=== PATIENT | female | born 1945 | race Caucasian/White ===

== ENCOUNTER → 2019-01-16 | Outpatient (CLI) | payer MEDICARE ==
[~2019-01-16] MED LIST: ATOR10TA60 PO; METF500T16 PO
--- NOTE | 2019-01-16 13:35 | KCIC ---
RENAL COMPLETE BILATERAL History: Hematuria Comparison: None. Findings: Multiple sonographic images of the kidneys and retroperitoneal structures are submitted. Right kidney measured 11.3 x 5.1 x 4.5 cm. Left kidney measured 11.5 x 4.5 x 5.2 cm. There is no hydronephrosis of either kidney. There is small echogenic focus of the mid right kidney about 0.3 cm, likely calculus. There is limited segmental visualization of the inferior vena cava, majority obscured by bowel gas. Caliber of the visualized abdominal aorta is within normal limits up to 2 cm. Urinary bladder morphology is within normal limits, ureteral jets seen bilaterally. Impression: 1. There is a small echogenic focus of the mid right kidney, likely small nonobstructive calculus. There is no hydronephrosis of either kidney. Electronically signed by: Nate Julien MD (01/16/2019 1:32 PM) [id number]
== END | disposition home or self-care (01) ==
LOC: KCIC US 11:12
PROVIDERS: ATTEND Family Medicine
DX: R31.9 Hematuria, unspecified (principal)
CPT/HCPCS: 76770

== ENCOUNTER → 2019-11-16 | Outpatient (CLI) | payer MEDICARE ==
[~2019-11-16] MED LIST changes: +CALC625T20 PO; +CETI10TA24 PO; +DIPH25CA58 PO; +FAMO40TA57 PO; +FERR-36 PO; +IBUP-1007 PO; +PANT40TA77 PO; +SUCR1TAB PO
[2019-11-16 09:36] LABS: BASO % 1 % (0-3); EOS # 0.1 x10^3/uL (0.0-0.7); EOS % 2 % (0-3); HEMATOCRIT 38.6 % (36.0-47.0); HEMOGLOBIN 12.7 g/dL (12.0-15.5); LYMPH # 1.6 x10^3/uL (1.0-4.8); LYMPH % 29 % (24-48); MEAN CORPUSCULAR HEMOGLOBIN 30 pg (25-35); MEAN CORPUSCULAR HGB CONC 33 g/dL (31-37); MEAN CORPUSCULAR VOLUME 92 fL (79-100); MONO # 0.5 x10^3/uL (0.0-1.1); MONO % 10 % (0-9); NEUT # 3.2 x10^3/uL (1.8-7.7); NEUT % 58 % (31-73); PLATELET COUNT 296 x10^3/uL (140-400); RED CELL DISTRIBUTION WIDTH 15.3 % (11.5-14.5); WHITE BLOOD COUNT 5.5 x10^3/uL (4.0-11.0)
[2019-11-16 09:41] LABS: ALBUMIN 3.7 g/dL (3.4-5.0); CALCIUM 10.6 mg/dL (8.5-10.1); CREATININE 0.9 mg/dL (0.6-1.0); POTASSIUM 4.5 mmol/L (3.5-5.1)
[2019-11-16 09:57] LABS: PROTHROMBIN TIME PATIENT 12.2 SEC (11.7-14.0)
--- NOTE | 2019-11-16 13:31 | EKG ---
[facility] [address] [place] [address] Test Date: 2019-11-16 Test Time: 12:45:23 Pat Name: HOWARD RODRIGUEZ Department: Room: Gender: F Clinical Care Coordinator: : 1945 Requested By: JOHNATHAN KNIGHT Order Number: [id number] Reading MD: William Mills Measurements Intervals [facility] Rate: 81 P: 54 VT: 138 QRS: 18 QRSD: 82 T: 58 QT: 340 QTc: 400 Interpretive Statements SINUS RHYTHM NORMAL ECG RI6.02 No previous ECG available for comparison Electronically Signed On 11-17-2019 13:03:52 FUND CONTROLLER by William Mills
[2019-11-16 23:07] LABS: HEMOGLOBIN A1C 6.1 % (4.8-5.6)
--- NOTE | 2019-11-17 07:53 | RAD ---
CHEST PA LATERAL History: Elevated BMI. Presurgical evaluation of the left knee. Comparison: None. Findings: Frontal and lateral views of the chest were obtained. The cardiomediastinal silhouette is normal. Pulmonary vasculature is normal. The lungs are clear. No pleural effusion or pneumothorax is seen. There is no acute bone abnormality. Upper abdominal surgical clips are present. IMPRESSION: No acute cardiopulmonary process. Electronically signed by: Ridge Lubin MD (11/17/2019 7:50 AM) [facility]
== END | disposition home or self-care (01) ==
LOC: SURGPAT 13:11
PROVIDERS: ATTEND Orthopaedic Surgery
DX: Z01.818 Encounter for other preprocedural examination (principal); M17.12 Unilateral primary osteoarthritis, left knee; E78.00 Pure hypercholesterolemia, unspecified; Z88.5 Allergy status to narcotic agent; Z88.8 Allergy status to other drugs, medicaments and biological substances
CPT/HCPCS: 36415; 71046; 80048; 82040; 82306; 83036; 85025; 85610; 85651; 85730; 87641; 93005

== ENCOUNTER 2019-12-08 08:55 | Inpatient (IN) | payer MEDICARE ==
[~2019-12-08] VITALS: Ht 162.6 cm; Wt 92.5 kg
[2019-12-08] VITALS (7 sets, daily range): BP systolic 96–122; BP diastolic 50–60
[~2019-12-08 08:55] MED LIST changes: +ACETAMINOPHEN 500 MG TABLET PO PRN; +CELECOXIB 100 MG CAPSULE. PO ONE; +DEXAMETHASONE SOD PHOS 4 MG/ML VIAL ONE; +IV RINGERS,LACTATED 1000ML 1,000 ML IV SCH; +LIDOCAINE 1% PF 2 ML VIAL. ID PRN; +LIDOCAINE 2% PF 5 ML VIAL. ONE; +MORPHINE SULFATE 5 MG, KETOROLAC 30MG VIAL 30 MG, ROPIVacaine 0.5% PF 60 ML, EPINEPHrin... INT ART ONE; +ONDANSETRON PF 4 MG/2 ML VIAL. IV PRN; +ONDANSETRON PF 4 MG/2 ML VIAL. ONE; +PHENYLEPHRINE in 0.9% NACL PF 1 MG/10 ML SYRINGE. IV ONE; +PROCHLORPERAZINE 10 MG/2 ML VIAL. IV PRN; +PROPOFOL 20 ML IV ONE; +ROCURONIUM 50 MG/5 ML VIAL. ONE; +SUCCINYLCHOLINE 200 MG/10 ML VIAL. ONE; +TOBRAMYCIN POWDER 1.2 GM VIAL. ONE; +TRANEXAMIC ACID 1,000 MG in IV NS 50ML -- 1ST BAG INJ ONE; +TRANEXAMIC ACID 1,000 MG in IV NS 50ML -- 2ND BAG INJ ONE; +VANCOMYCIN 1 GM VIAL. ONE; +ceFAZolin 2GM PREMIX 2 GM/50 ML BAG IV ONE; +ePHEDrine PF IN SALINE 50 MG/10 ML SYRINGE. IV ONE; +fentaNYL PF VIAL 100 MCG/2 ML VIAL IV PRN; +fentaNYL PF VIAL 100 MCG/2 ML VIAL ONE
[2019-12-08] MEDS ORDERED: CELE200C PO (09:20)
[2019-12-08] MEDS ORDERED: INSULIN LISPRO 100 UNIT/ML 3ML VIAL for OP,RR ONLY. SQ PRN (09:30)
[2019-12-08] MEDS ORDERED: CELECOXIB 100 MG CAPSULE. PO ONE (09:45)
[2019-12-08] MEDS ORDERED: MIDAZOLAM HCL/PF 2 MG/2 ML VIAL. ONE (10:20)
[2019-12-08] MEDS ORDERED: fentaNYL PF VIAL 100 MCG/2 ML VIAL ONE (10:48)
[2019-12-08] MEDS ORDERED: GLYCOPYRROLATE 1 MG/5 ML VIAL. ONE (10:49)
[2019-12-08] MEDS ORDERED: NEOSTIGMINE METHYLSULFATE 5 MG/5 ML SYRINGE. ONE (11:29)
[2019-12-08] MEDS ORDERED: SEVOFLURANE > 120 MINUTES. IH ONE (11:29)
--- NOTE | 2019-12-08 12:45 | PDOC4 ---
Operative Note Operative Note Date of Procedure: December 08, 2019 Pre-Op Diagnosis: Unilateral primary osteoarthritis, left knee. M17.12 Post-Op Diagnosis: same Procedure: left total knee arthroplasty with patella resurfacing, robotic assisted, CPT 62164 Surgeon: Johnathan Wilkins MD Auxiliary Equipment Operator: MOMO Clay Anesthesia: General EBL: 100 mL Specimens Obtained: left knee bone and soft tissue Complications: none Drains: Hemovac plus pain catheter Tourniquet time: 71 Minutes Tourniquet Pressure: 350 mm Hg Indications for Procedure: Knee arthritis pain, affecting quality of life, unrelieved by nonoperative management Findings: Severe osteoarthritis with bone on bone contact in all three compartments Implants: Tony [employer] Nephew Journey II Total Knee System, Size 4 left bicruciate stabilized Journey II BCS cobalt chrome femoral component, size 3 left Journey nonporous tibial baseplate, size 3-4 11 mm left Journey II BCS XLPE articular insert, 32 mm oval Anju II resurfacing patellar component Procedure in Detail: The patient was identified in the preoperative holding area, and the correct left lower extremity was marked by me. The patient was taken to the operating r oom where the patient was anesthetized by the Department of Anesthesia. Preoperative antibiotics were given intravenously. Tranexamic acid 1 g was given intravenously for intraoperative hemostasis. A "time-out" procedure was performed. The patient was positioned supine on the operative table with a tourniquet on the upper left thigh. A left hip bump and heel bump were attached to the operating table for later intraoperative positioning. The left lower limb was thoroughly scrubbed, then sterile Chloraprep solution was applied, and the limb was draped in sterile fashion. The operating team wore exhaust ventilated hoods with [employer] Personal Protection Toga Zippered Peel-Away protection system. An impervious stockinet and an adhesive drape were used such that the skin was entirely covered. The limb was exsanguinated with an Esmarch bandage, and the tourniquet was inflated. A midline skin incision was made with a scalpel using the patella and tibial tubercle as landmarks. Electrocautery was used for hem ostasis. My child care center assistant director used rake retractors and a laparotomy sponge. A medial parapatellar arthrotomy incision was used with extension into the distal quadriceps tendon. The patella was retracted laterally and Hohmann retractors were now used by my child care center assistant director. Excess synovium, the menisci, and the cruciate ligaments were resected sharply. A periarticular multimodal ropivacaine anesthetic injection was used in the suprapatellar pouch and distal quadriceps muscle. The patella was everted and exposed. The patella thickness was measured with a caliper, and then cut freehand with a saw, using caliper measurements to assess the resection. The lateral retinaculum was partially released from the lateral patella using electrocautery. Rongeurs were used to make sure there were no remaining exposed patellar osteophytes medially or laterally. The patella was sized, and then drilled for an oval three-peg patella component. The tibial tracker array for the NAVIO system was applied to the tibial crest four finger breadths below the tibial tubercle, using percutaneous incisions and bicortical pins. The femoral tracker array was applied outside of the original incision using two separate stab incisions using bicortical pins. Checkpoint verification pins were applied to the femur and tibia. Using the point probe, the medial and lateral malleoli were localized and the locations were stored. The center of the tibia was noted at the anterior cruciate ligament insertion and stored. The center of the femur was marked at the intersection of Whitesidess line with the transepicondylar axis. The hip center calculation was performed with range of motion of the hip. The femur neutral position was identified, and simulated weightbearing was performed with axial compression on the foot. Range of motion without stress was performed and the data collected. Range of motion with valgus stress, and range of motion with varus stress data collection was also performed. Rotational references include the Whitesidess line, and the trans-epicondylar axis. The femoral articular surface was now mapped in 3 dimensions using the point probe and digital data collected. The tibial condyle articular surfaces and cortical edges were mapped in 3 dimensions using the point probe including the medial and lateral tibial plateau. Implant planning was now performed on-screen with manipulation of the implant sizes, cut thicknesses and gaps, component rotation, component flexion/extension and component varus/valgus until satisfactory ligament balance, alignment and stability of the knee was expected throughout the range of motion. My child care center assistant director held Hohmann retractors and an [employer] retractor to protect the medial and lateral collateral ligaments, the patellar tendon, the skin and the other soft tissues. The point probe was used to confirm the location of the checkpoint verification pins. The distal femoral surface was now prepared using the Anspach nidia with footpedal, and the NAVIO handpiece for bone removal to the previously planned distal femoral resection. The crosshairs at the pin locations were marked by using a mallet and the point probe for definitive location. A 5-in-1 Journey II cutting guide was then applied and the position was checked with the virtual fritz wing from the NAVIO to ensure proper placement as the pins were applied. The posterior, anterior, and all chamfer cuts were made with the oscillating saw. Excess bone was removed with an osteotome and rongeurs. The tibial cutting guide was applied, positioned using the NAVIO virtual fritz wing, and secured to the upper tibia using three pins at the previously planned location. The virtual fritz wing was used to confirm the resection depth, slope and coronal alignment. The upper tibia was cut made with an oscillating saw. My child care center assistant director held Hohmann retractors and a posterior cruciate ligament retractor to protect the medial and lateral collateral ligaments, the patellar tendon, the skin, the peroneal nerve and the other soft tissues. The upper tibia was sized with a trial baseplate. The posterior compartment was cleared of osteophytes and loose bodies. The periarticular anesthetic injection was used in the posterior compartment. The box cut for a posterior stabilized component was made. A preliminary reduction was performed with a trial femur, trial tibial baseplate and trial polyethylene. The NAVIO system was used to confirm range of motion, and postoperative stressed gap assessment. No additional releases were required. The stability was assessed using different thicknesses of tibial articular surface to find satisfactory stability and good range of motion. The rotation of the tibial component was marked on the upper tibia. Final trial reduction was now performed verifying patella tracking and tibiofemoral stability and alignment. The bone pins and tracker arrays were removed, and the checkpoint verification pins were removed. The tibia preparation was completed with a drill, saw, and fin punch at the previously noted rotation. The final implants were verified and opened. Outer gloves were changed by the operating team. Betadine lavage was used. The bone cuts were irrigated with saline using the [employer] InterPulse device and then dried with suction and laparotomy sponges. Two packages of Tony + Nephew Rally HV bone cement were mixed in powdered form with Vancomycin 1gm and Tobramycin 1.2 gm, and then vacuum-mixed with the monomer, and placed into a cement gun. The cut surfaces of the bone were thoroughly dried with suction and with laparotomy sponges for cement interdigitation. The final components were cemented into place. The knee was kept at full extension while the cement hardened, and excess cement was removed. A Betadine lavage was used throughout the surgical exposure, and allowed to sit in contact with the exposed joint surfaces for three minutes while the cement hardened. Tranexamic acid 1 g was redosed intravenously for additional intraoperative hemostasis. The tourniquet was released, and electrocautery was used for hemostasis. A final periarticular anesthetic injection was used for pain relief. The bone pin sites on the tibial crest were closed with #3-0 Nylon sutures. A final check of [id number] and stability was made, and the polyethylene implant final size was chosen. The polyethylene implant was secured to the tibial baseplate, and the knee was reduced a final time and range of motion and stability was confirmed. Thorough irrigation was used. A pain catheter, and a 15 Fr Hemovac were inserted. Topical Vancomycin 1 gm was used during the closure. The arthrotomy was closed with interrupted [id number] #1 PDS suture. The arthrotomy incision was then run with #1 STRATAFIX Symmetric PDS Plus Knotless suture. The subcutaneous tissues were approximated initially with 2-0 PDS inverted interrupted sutures by my child care center assistant director. Next the subcuticular layer was approximated in a running fashion with #3-0 STRATAFIX suture by my child care center assistant director. The skin incision was then covered and reinforced by my child care center assistant director with Acticoat, followed by a CHASE single use negative pressure wound therapy dressing Soft roll and an Og wrap were applied. Needle and sponge counts were correct. There were no apparent complications. The patient returned to the recovery room in stable condition. JOHNATHAN WILKINS MD Dec 08, 2019 12:45
[2019-12-08] MEDS ORDERED: CALCIUM CARBONATE 500 MG TAB.CHEW PO PRN (13:00)
[2019-12-08] MEDS ORDERED: fentaNYL PF VIAL 100 MCG/2 ML VIAL IVP PRN ×2 (13:00)
[2019-12-08] MEDS ORDERED: MORPHINE SULFATE 2 MG/ML VIAL. IVP PRN (13:00)
[2019-12-08] MEDS ORDERED: diphenhydrAMINE 50 MG/ML VIAL IVP PRN (13:00)
[2019-12-08] MEDS ORDERED: DEXTROSE 50% 25 GM / 50ML DISP.SYRIN. IV PRN (13:00)
[2019-12-08] MEDS ORDERED: MORPHINE SULFATE 4 MG/ML VIAL. IVP PRN (13:00)
[2019-12-08] MEDS ORDERED: PROCHLORPERAZINE 5 MG TABLET. PO PRN (13:00)
[2019-12-08] MEDS ORDERED: METOCLOPRAMIDE HCL 10 MG/2 ML VIAL. IVP PRN (13:00)
[2019-12-08] MEDS ORDERED: 0.9 % SODIUM CHLORIDE 10 ML DISP.SYRIN. IV PRN (13:00)
[2019-12-08] MEDS ORDERED: ZOLPIDEM 5 MG TABLET. PO PRN (13:00)
--- NOTE | 2019-12-08 13:54 | RAD ---
EXAM: Left knee, 2 views. HISTORY: Arthroplasty. COMPARISON: 11/09/2019 FINDINGS: 2 views of the left knee are obtained. There is a left knee arthroplasty in expected position. There is joint fluid, soft tissue gas and a drain due to recent surgery. IMPRESSION: Left knee arthroplasty in expected position. Electronically signed by: Carol Hardy MD (12/08/2019 1:52 PM) [id number]
--- NOTE | 2019-12-08 14:30 | PDOC1 ---
History and Physical Date of Admission Date of Admission DATE: 12/08/19 TIME: 14:21 History of Present Illness History of Present Illness Christa is a 74-year-old woman with left knee osteoarthritis, here for left TKA, and has bilateral knee OA. She is a past [facility] patient of mine with a long history of bilateral knee pain. History of left knee arthroscopy in 2008 and right knee arthroscopy in 2010. History of L4-5 spine fusion. History of DVT with left knee scope and infection in her left big toe with ingrown toenail. Her granddaughter goes to school with my son. Currently, she states that both knees bother her, left worse. She takes ibuprofen and Aleve occasionally. When she moves her left knee the wrong way she reports feeling like a "knife is in my knee". Post thrombosis symptoms in left leg including swelling. She notes being able to walk a mile for exercise although it would be painful afterwards. She went to [place] last year with her daughter but had to use a cane. Reports that her last cortisone injection did not help although she has been compliant with physical therapy. Denies smoking. Denies any known metal allergy. She is here for left total knee arthroplasty electively. Past Medical History Past Medical History Mammogram 10/13, 11/15, 11/16, 11/17, 11/18. EGD June 2013 with chronic gastritis. colonoscopy 2009 Dr Camp: repeat 2014 showed polyps. Repeat again in 2019. echocardiogram April 2012. Normal LV function with ejection fraction of 55-60%. Horne's esophagus, path neg 2013. BMD DEXA 10/05, 11/08, 04/09, 07/15. Pneumovax 03/09 Prevnar 07/14. Past Surgical History Past Surgical History cataract removal LORNA with RSO cholecystectomy tonsillectomy Spinal fusion Family History Family History: No Significant Social History Smoke: No ALCOHOL: none Current Medications Current Medications Current Medications Ondansetron HCl (Zofran) 4 mg PRN Q6HRS PRN IV NAUSEA/VOMITING; Start 12/08/19 at 07:00; Stop 12/09/19 at 06:59 Fentanyl Citrate (Fentanyl 2ml Vial) 25 mcg PRN Q5MIN PRN IV MILD PAIN 1-3 Last administered on 12/08/19at 13:55; Start 12/08/19 at 07:00; Stop 12/09/19 at 06:59 Fentanyl Citrate (Fentanyl 2ml Vial) 50 mcg PRN Q5MIN PRN IV MODERATE TO SEVERE PAIN Last administered on 12/08/19at 13:22; Start 12/08/19 at 07:00; Stop 12/09/19 at 06:59 Ringer's Solution 1,000 ml @ 30 mls/hr Q24H IV Last administered on 12/08/19at 09:36; Start 12/08/19 at 07:00; Stop 12/08/19 at 18:59 Lidocaine HCl (Xylocaine-Mpf 1% 2ml Vial) 2 ml PRN 1X PRN ID PRIOR TO IV START; Start 12/08/19 at 07:00; Stop 12/09/19 at 06:59 Prochlorperazine Edisylate (Compazine) 5 mg PACU PRN PRN IV NAUSEA, MRX1 Last administered on 12/08/19at 13:58; Start 12/08/19 at 07:00; Stop 12/09/19 at 06:59 Morphine Sulfate 5 mg/Ketorolac Tromethamine 30 mg/Ropivacaine 60 ml/Epinephrine HCl 0.5 mg/Sodium Chloride 100 ml @ 100 mls/hr 1X ONCE INT ART Last administered on 12/08/19at 10:57; Start 12/08/19 at 06:00; Stop 12/08/19 at 06:59; Status DC Acetaminophen (Tylenol) 1,000 mg 1X PREOP PRN PO PRIOR TO PROCEDURE Last administered on 12/08/19at 09:39; Start 12/08/19 at 06:00; Stop 12/08/19 at 18:00 Cefazolin Sodium/ Dextrose 50 ml @ 100 mls/hr 1X PREOP PRN IV PRIOR TO PROCEDURE Last administered on 12/08/19at 10:13; Start 12/08/19 at 06:00; Stop 12/08/19 at 18:00 Tranexamic Acid 1000 mg/Sodium Chloride 60 ml @ 60 mls/hr 1X PERIOP ONCE INJ Last administered on 12/08/19at 10:25; Start 12/08/19 at 06:00; Stop 12/08/19 at 06:59; Status DC Tranexamic Acid 1000 mg/Sodium Chloride 60 ml @ 60 mls/hr 1X PERIOP ONCE INJ Last administered on 12/08/19at 12:05; Start 12/08/19 at 08:00; Stop 12/08/19 at 08:59; Status DC Celecoxib (CeleBREX) 400 mg ONCE ONCE PO ; Start 12/08/19 at 06:00; Stop 12/08/19 at 09:45; Status DC Propofol 20 ml @ As Directed STK-MED ONCE IV ; Start 12/08/19 at 08:00; Stop 12/08/19 at 08:01; Status DC Lidocaine HCl (Lidocaine Pf 2% Vial) 5 ml STK-MED ONCE .ROUTE ; Start 12/08/19 at 08:00; Stop 12/08/19 at 08:01; Status DC Dexamethasone Sodium Phosphate (Decadron) 4 mg STK-MED ONCE .ROUTE ; Start 12/08/19 at 08:00; Stop 12/08/19 at 08:01; Status DC Ondansetron HCl (Zofran) 4 mg STK-MED ONCE .ROUTE ; Start 12/08/19 at 08:00; Stop 12/08/19 at 08:01; Status DC Phenylephrine HCl (PHENYLEPHRINE in 0.9% NACL PF) 1 mg STK-MED ONCE IV ; Start 12/08/19 at 08:00; Stop 12/08/19 at 08:01; Status DC Ephedrine Sulfate (ePHEDrine PF IN SALINE SYRINGE) 50 mg STK-MED ONCE IV ; Start 12/08/19 at 08:01; Stop 12/08/19 at 08:01; Status DC Rocuronium [place] (Zemuron) 50 mg STK-MED ONCE .ROUTE ; Start 12/08/19 at 08:01; Stop 12/08/19 at 08:01; Status DC Succinylcholine Chloride (Anectine) 200 mg STK-MED ONCE .ROUTE ; Start 12/08/19 at 08:01; Stop 12/08/19 at 08:02; Status DC Fentanyl Citrate (Fentanyl 2ml Vial) 100 mcg STK-MED ONCE .ROUTE ; Start 12/08/19 at 08:19; Stop 12/08/19 at 08:20; Status DC Vancomycin HCl (Vancomycin) 1 gm STK-MED ONCE .ROUTE Last administered on 12/08/19at 10:57; Start 12/08/19 at 08:29; Stop 3/10/20 at 08:30; Status DC Vancomycin HCl (Vancomycin) 1 gm STK-MED ONCE .ROUTE Last administered on 12/08/19at 10:57; Start 12/08/19 at 08:30; Stop 12/08/19 at 08:30; Status DC Tobramycin Sulfate (Tobramycin Powder) 1.2 gm STK-MED ONCE .ROUTE Last administered on 12/08/19at 10:56; Start 12/08/19 at 08:30; Stop 12/08/19 at 08:30; Status DC Insulin Human Lispro (HumaLOG VIAL for OP,RR ONLY) 0-10 units PRN Q1HR PRN SQ PER PROTOCOL; Start 12/08/19 at 09:30; Stop 12/09/19 at 09:29 Celecoxib (CeleBREX) 200 mg 1X ONCE PO Last administered on 12/08/19at 09:45; Start 12/08/19 at 09:45; Stop 12/08/19 at 09:58; Status DC Midazolam HCl (Versed) 2 mg STK-MED ONCE .ROUTE ; Start 12/08/19 at 10:20; Stop 12/08/19 at 10:21; Status DC Fentanyl Citrate (Fentanyl 2ml Vial) 100 mcg STK-MED ONCE .ROUTE ; Start 11/28 at 10:48; Stop 12/08/19 at 10:49; Status DC Glycopyrrolate (Robinul) 1 mg STK-MED ONCE .ROUTE ; Start 12/08/19 at 10:49; Stop 12/08/19 at 10:49; Status DC Sevoflurane (Ultane) 90 ml STK-MED ONCE IH ; Start 12/08/19 at 11:29; Stop 12/08/19 at 11:29; Status DC Neostigmine [place] (Neostigmine Methylsulfate) 5 mg STK-MED ONCE .ROUTE ; Start 12/08/19 at 11:29; Stop 12/08/19 at 11:29; Status DC Morphine Sulfate (Morphine Sulfate) 2 mg PRN Q1HR PRN IVP PAIN; Start 12/08/19 at 13:00 Fentanyl Citrate (Fentanyl 2ml Vial) 25 mcg PRN Q1HR PRN IVP PAIN, 2nd CHOICE; Start 12/08/19 at 13:00 Diphenhydramine HCl (Benadryl) 25 mg PRN Q6HRS PRN IVP ITCHING; Start 12/08/19 at 13:00 Multivitamins (Thera M Plus) 1 tab DAILY PO ; Start 12/09/19 at 09:00 Senna/Docusate Sodium (Senna Plus) 1 tab DAILY PO ; Start 12/09/19 at 09:00 Sodium Chloride 1,000 ml @ 40 mls/hr Q24H IV ; Start 12/08/19 at 12:48 Prochlorperazine Maleate (Compazine) 10 mg PRN Q4HRS PRN PO Nausea/vomiting, 2nd choice; Start 12/08/19 at 13:00 Metoclopramide HCl (Reglan Vial) 10 mg PRN Q4HRS PRN IVP NAUSEA/VOMITING, 3rd CHOICE; Start 12/08/19 at 13:00 Magnesium Hydroxide (Milk Of Magnesia) 2,400 mg 1X PRN PRN PO CONSTIPATION; Start 12/09/19 at 06:00; Stop 12/10/19 at 05:59 Bisacodyl (Dulcolax Supp) 10 mg 1X PRN PRN [place] CONSTIPATION; Start 12/09/19 at 16:00; Stop 12/10/19 at 15:59 Zolpidem Tartrate (Ambien) 5 mg PRN QHS PRN PO INSOMNIA, MAY REPEAT IN 1HR; Start 12/08/19 at 13:00 Calcium Carbonate/ Glycine (Tums) 500 mg PRN QID PRN PO INDIGESTION; Start 12/08/19 at 13:00 Morphine Sulfate (Morphine Sulfate) 4 mg PRN Q1HR PRN IVP PAIN; Start 12/08/19 at 13:00 Ketorolac Tromethamine 30 mg/Bupivacaine HCl 20 ml/ Epinephrine HCl 0.5 mg/ Miscellaneous 43 ml @ 258 mls/hr Q12H INT ART Last administered on 12/08/19at 12:57; Start 12/08/19 at 18:00; Stop 12/09/19 at 06:09 Sodium Chloride (Normal Saline Flush) 10 ml QSHIFT PRN IV AFTER MEDS AND BLOOD DRAWS; Start 12/08/19 at 13:00 Fentanyl Citrate (Fentanyl 2ml Vial) 50 mcg PRN Q1HR PRN IVP PAIN, 2nd CHOICE; Start 12/08/19 at 13:00 Ondansetron HCl (Zofran) 4 mg Q6HRS IVP ; Start 12/08/19 at 18:00; Stop 12/09/19 at 12:01 Ondansetron HCl (Zofran Odt) 4 mg PRN Q6HRS PRN PO NAUSEA/VOMITING; Start 12/08/19 at 18:00 Ondansetron HCl (Zofran) 4 mg PRN Q6HRS PRN IVP Nausea/vomiting, 1st choice; Start 12/09/19 at 12:00 Ondansetron HCl (Zofran Odt) 4 mg PRN Q6HRS PRN PO Nausea/vomiting, 1st choice; Start 12/09/19 at 12:00 Dextrose (Dextrose 50%-Water Syringe) 12.5 gm PRN Q15MIN PRN IV SEE COMMENTS; Start 12/08/19 at 13:00 Cefazolin Sodium/ Dextrose 50 ml @ 100 mls/hr Q6H IV ; Start 12/08/19 at 14:00; Stop 12/09/19 at 02:29 Celecoxib (CeleBREX) 200 mg DAILY PO ; Start 12/09/19 at 09:00; Stop 01/08/20 at 08:59 Hydromorphone HCl (Dilaudid) 2 mg PRN Q4HRS PRN PO PAIN; Start 12/08/19 at 13:00 Rivaroxaban (Xarelto) 10 mg DAILYWBKFT PO ; Start 12/09/19 at 08:00 Active Scripts Active Reported Celebrex (Celecoxib) 200 Mg Capsule 1 Cap PO ONCE Iron (Ferrous Sulfate) 325 Mg Tablet 325 Mg PO DAILY Fiber Tabs (Calcium Polycarbophil) 625 Mg Tablet 625 Mg PO DAILY Ibuprofen 600 Mg Tablet 600 Mg PO PRN Q6HRS PRN Benadryl (Diphenhydramine Hcl) 25 Mg Capsule 50 Mg PO HS Zyrtec (Cetirizine Hcl) 10 Mg Tablet 10 Mg PO DAILY Sucralfate 1 Gm Tablet 1 Gm PO HS Pantoprazole Sodium (Pantoprazole Sodium) 40 Mg Tablet.dr 40 Mg PO QODAY Pepcid (Famotidine) 40 Mg Tablet 80 Mg PO QODAY Metformin Hcl 500 Mg Tablet 1 Tab PO DAILY07 Atorvastatin Calcium 10 Mg Tablet 1 Tab PO DAILY Allergies Allergies: Coded Allergies: codeine (Verified Allergy, Intermediate, MIGRAINES, VOMITING, 12/08/19) hydrocodone (Verified Allergy, Intermediate, 12/08/19) oxycodone (Verified Allergy, Intermediate, 12/08/19) lansoprazole (Verified Allergy, Mild, MIGRAINES, 12/08/19) ROS Review of System OPHTHALMOLOGY: Blurred vision none. Double vision denies. Change in vision none. ENT: Hearing loss none. Change in voice denies. Rhinorrhea none. CARDIOLOGY: Palpitations none. Shortness of breath denies. Chest pain denies. CONSTITUTIONAL: Fever denies. Chills denies. Weight gain denies. Weakness none. weight loss denies. Fatigue none. GASTROENTEROLOGY: Diarrhea denies. Vomiting none. Dysphagia none. UROLOGY: Voiding normally yes. Hematuria none. MUSCULOSKELETAL: Chronic back or neck pain denies. Swelling of the feet, hands, ankles and /or legs denies. Joint pain reports. Tingling/numbness no. DERMATOLOGY: Rash denies. Lumps none. NEUROLOGY: Dizziness/lightheadedness denies. Double vision, temporary blindness denies. Tingling/numbness none. PSYCHOLOGY: Change in mood or personality denies. Memory loss none. ENDOCRINOLOGY: Obesity denies. Fatigue none. Weight loss none. HEMATOLOGY/LYMPH: Hepatitis denies. Enlarged lymph nodes denies. Physical Exam General: Alert, Cooperative HEENT: Atraumatic Heart: RRR Abdomen: Soft Extremities: Other (The LEFT knee shows a mildly antalgic gait. There is normal alignment. No masses. No detectable effusion. Diffuse tenderness on the joint lines. Range of motion is 5-115 degrees. There is slight crepitus with range of motion, and pain at the extremes of motion. The knee is stable to varus and valgus stress without subluxation or laxity. Muscle strength is slightly weak for the quadriceps 4+/5 which may be due to pain or avoidance, and does not seem neurogenic, and the muscle tone and bulk is slightly decreased. The hamstring strength is 5/5. The skin is normal with no scars, rashes, lesions or ulcers. Light touch sensation is intact. No edema and no varicosities. Dorsalis pedis pulse is intact and capillary refill is normal) Skin: No significant lesion Neuro: Normal speech, Sensation intact Vitals Vitals Vital Signs Date Time Temp Pulse Resp B/P (MAP) Pulse Ox O2 Delivery O2 Flow Rate FiO2 12/08/19 14:15 98.7 84 16 99/47 98 Nasal Cannula 4.0 98.7 Labs Labs Laboratory Tests Test 12/08/19 09:31 Glucose (Fingerstick) 95 mg/dL (70-99) Laboratory Tests Test 12/08/19 09:31 Glucose (Fingerstick) 95 mg/dL (70-99) Images Images Knee x-ray show osteoarthritis VTE Prophylaxis Ordered VTE Prophylaxis Devices: Yes VTE Pharmacological Prophylaxi: Yes Assessment/Plan Assessment/Plan She is here for elective left total knee arthroplasty. JOHNATHAN KNIGHT MD Dec 08, 2019 14:30
--- NOTE | 2019-12-08 14:38 | NUR ---
Arrived on unit by bed from PACU. Drowsy but awakens easily but falls asleep. Right leg up on pillow with ice pack. Right leg dressing is d/i with IAC and Hemovac drain. Able to wiggle toes easily, warm to touch and pedal pulses + bilaterally. IVF's intact and infusing. JESUS and SCD on left and ISABELLE on right foot. O2 at 4l per n/c. Oxygen increase from 2 to 4l. O2 sat 94%. Side rails up x's 2 with call light in reach. Family at bedside. Cont. monitor.
[2019-12-08] MEDS: IV NORMAL SALINE 1000ML BAG 1,000 ML IV SCH (14:47)
--- NOTE | 2019-12-08 15:56 | NUR ---
Santos from PACU charted at 1257 that he gave the Toradol/IAC mixture. This nurse called PACU to verify if it was given or not. Per PACU and pharmacy it was not given as an IV infusion and only given during surgery as the injection so it was miss charted. IV charted as stopped and note to verify it was not given at all.
[2019-12-08] MEDS: KETOROLAC 30MG VIAL 30 MG, BUPIVACAINE MPF 0.25% 20 ML, EPINEPHrine 0.5 MG in TOTAL VOL... INT ART SCH (17:43)
[2019-12-08] MEDS ORDERED: KETOROLAC 30MG VIAL 30 MG, BUPIVACAINE MPF 0.25% 20 ML, EPINEPHrine 0.5 MG in TOTAL VOL... INT ART SCH (18:00)
[2019-12-08] MEDS ORDERED: ONDANSETRON ODT 4 MG TAB.RAPDIS. PO PRN (18:00)
[2019-12-08] MEDS: ONDANSETRON PF 4 MG/2 ML VIAL. IVP SCH (18:00)
[2019-12-08] MEDS: SUCRALFATE 1 GM TABLET. PO SCH (20:45)
[2019-12-08] MEDS: diphenhydrAMINE HCL 25 MG CAPSULE PO SCH (20:56)
[2019-12-09] MEDS: HYDROmorphone 2 MG TABLET PO PRN ×5 (02:21→20:57)
[2019-12-09 03:19] VITALS: BP 105/54
[2019-12-09 05:40] LABS: HEMATOCRIT 29.7 % (36.0-47.0); HEMOGLOBIN 10.2 g/dL (12.0-15.5); RED BLOOD COUNT 3.25 x10^6/uL (3.50-5.40); RED CELL DISTRIBUTION WIDTH 14.8 % (11.5-14.5); WHITE BLOOD COUNT 11.1 x10^3/uL (4.0-11.0)
[2019-12-09] MEDS ORDERED: MAGNESIUM HYDROXIDE 2,400 MG/30 ML ORAL.SUSP. PO PRN (06:00)
[2019-12-09] MEDS: KETOROLAC 30MG VIAL 30 MG, BUPIVACAINE MPF 0.25% 20 ML, EPINEPHrine 0.5 MG in TOTAL VOL... INT ART SCH (06:00)
[2019-12-09] MEDS: ONDANSETRON PF 4 MG/2 ML VIAL. IVP SCH ×3 (06:00→11:47)
[2019-12-09 06:32] VITALS: BP 96/52
[2019-12-09] MEDS: CALCIUM POLYCARBOPHIL 625 MG TABLET PO SCH (07:46)
[2019-12-09] MEDS: RIVAROXABAN 10 MG TABLET. PO SCH (07:46)
[2019-12-09] MEDS: ATORVASTATIN CALCIUM 10 MG TABLET. PO SCH (07:46)
[2019-12-09] MEDS: CETIRIZINE HCL 10 MG TABLET. PO SCH (07:46)
[2019-12-09] MEDS: metFORMIN 500 MG TABLET PO SCH (07:46)
[2019-12-09] MEDS: PANTOPRAZOLE 40 MG TABLET.DR. PO SCH (07:46)
[2019-12-09] MEDS: MULTIVITAMIN with MINERAL TABLET. PO SCH (07:47)
[2019-12-09] MEDS: SENNOSIDES/DOCUSATE 8.6/50MG TABLET. PO SCH (07:47)
[2019-12-09] MEDS: CELECOXIB 100 MG CAPSULE. PO SCH (07:47)
--- NOTE | 2019-12-09 07:47 | PDOC ---
ORTHO PROGRESS NOTES Subjective Patient states pain at 3-4 out of 10 after getting up to restroom. Post-op Day: 1 Procedure L TKA Vitals Vital Signs Date Time Temp Pulse Resp B/P (MAP) Pulse Ox O2 Delivery O2 Flow Rate FiO2 12/09/19 06:32 97.8 95 16 96/52 (67) 94 Room Air 97.8 12/08/19 20:00 4.0 Labs Laboratory Tests Test 12/08/19 09:31 12/08/19 14:30 12/09/19 04:35 12/09/19 06:51 Glucose (Fingerstick) 95 mg/dL (70-99) 155 mg/dL (70-99) 107 mg/dL (70-99) White Blood Count 11.1 x10^3/uL (4.0-11.0) Red Blood Count 3.25 x10^6/uL (3.50-5.40) Hemoglobin 10.2 g/dL (12.0-15.5) Hematocrit 29.7 % (36.0-47.0) Mean Corpuscular Volume 92 fL (79-100) Mean Corpuscular Hemoglobin 31 pg (25-35) Mean Corpuscular Hemoglobin Concent 34 g/dL (31-37) Red Cell Distribution Width 14.8 % (11.5-14.5) Platelet Count 256 x10^3/uL (140-400) Laboratory Tests Test 12/08/19 09:31 12/08/19 14:30 12/09/19 04:35 12/09/19 06:51 Glucose (Fingerstick) 95 mg/dL (70-99) 155 mg/dL (70-99) 107 mg/dL (70-99) White Blood Count 11.1 x10^3/uL (4.0-11.0) Red Blood Count 3.25 x10^6/uL (3.50-5.40) Hemoglobin 10.2 g/dL (12.0-15.5) Hematocrit 29.7 % (36.0-47.0) Mean Corpuscular Volume 92 fL (79-100) Mean Corpuscular Hemoglobin 31 pg (25-35) Mean Corpuscular Hemoglobin Concent 34 g/dL (31-37) Red Cell Distribution Width 14.8 % (11.5-14.5) Platelet Count 256 x10^3/uL (140-400) Notes awake and alert sitting up in chair at bedside eating breakfast Assessment and Plan POD # 1 S/P L TKA with patella resurfacing motor and sensation intact LLE dressing dry and intact continue PT LEX VILLATORO APRN Dec 09, 2019 07:47
[2019-12-09] MEDS: IV NORMAL SALINE 1000ML BAG 1,000 ML IV SCH (11:47)
[2019-12-09] MEDS ORDERED: ONDANSETRON PF 4 MG/2 ML VIAL. IVP PRN (12:00)
[2019-12-09] MEDS ORDERED: ONDANSETRON ODT 4 MG TAB.RAPDIS. PO PRN (12:00)
[2019-12-09] MEDS ORDERED: BISACODYL 10 MG SUPP.RECT. PR PRN (16:00)
--- NOTE | 2019-12-09 16:42 | NUR ---
Patients IAC and hemovac were both discontinued after her last PT today around 1510 today. Foam dressings were applied over both sites and no complications were noted at this time. CHASE dressing intact and working properly with only a small amount of drainage noted. Elvira LEE hose on to help with DVT prevention. Will continue to monitor.
--- NOTE | 2019-12-09 17:21 | PDOC ---
PROGRESS NOTES Subjective Subjective Doing pretty well. Not able to get out of bed without assistance yet. Objective Vital Signs Vital Signs Date Time Temp Pulse Resp B/P (MAP) Pulse Ox O2 Delivery O2 Flow Rate FiO2 12/09/19 16:27 94 Room Air 12/09/19 06:32 97.8 95 16 96/52 (67) 97.8 12/08/19 20:00 4.0 Physical Exam CHASE intact and dry with spotty bloody drainage only. Pain catheter and Hemovac have been removed. Calf soft and NT. Good AROM of foot and toes. Intact sensation distally. No sign of compartment syndrome or DVT. Some ecchymosis, no blisters. Labs Laboratory Tests Test 12/08/19 09:31 12/08/19 14:30 12/09/19 04:35 12/09/19 06:51 Glucose (Fingerstick) 95 mg/dL (70-99) 155 mg/dL (70-99) 107 mg/dL (70-99) White Blood Count 11.1 x10^3/uL (4.0-11.0) Red Blood Count 3.25 x10^6/uL (3.50-5.40) Hemoglobin 10.2 g/dL (12.0-15.5) Hematocrit 29.7 % (36.0-47.0) Mean Corpuscular Volume 92 fL (79-100) Mean Corpuscular Hemoglobin 31 pg (25-35) Mean Corpuscular Hemoglobin Concent 34 g/dL (31-37) Red Cell Distribution Width 14.8 % (11.5-14.5) Platelet Count 256 x10^3/uL (140-400) Test 12/09/19 11:38 Glucose (Fingerstick) 118 mg/dL (70-99) Laboratory Tests Test 12/09/19 04:35 12/09/19 06:51 12/09/19 11:38 White Blood Count 11.1 x10^3/uL (4.0-11.0) Red Blood Count 3.25 x10^6/uL (3.50-5.40) Hemoglobin 10.2 g/dL (12.0-15.5) Hematocrit 29.7 % (36.0-47.0) Mean Corpuscular Volume 92 fL (79-100) Mean Corpuscular Hemoglobin 31 pg (25-35) Mean Corpuscular Hemoglobin Concent 34 g/dL (31-37) Red Cell Distribution Width 14.8 % (11.5-14.5) Platelet Count 256 x10^3/uL (140-400) Glucose (Fingerstick) 107 mg/dL (70-99) 118 mg/dL (70-99) Imaging Report reviewed, images independently reviewed. Satisfactory TKA without apparent complications. PATIENT: HOWARD RODRIGUEZ CACCOUNT: [id number] : 1945 LOCATION: [address] [place] [address] AGE: 74 SEX: F EXAM STATUS: ADM IN ORD. PHYSICIAN: JOHNATHAN KNIGHT MD REASON: POST OP PROCEDURE: KNEE LEFT 2V EXAM: Left knee, 2 views. HISTORY: Arthroplasty. COMPARISON: 11/09/2019 FINDINGS: 2 views of the left knee are obtained. There is a left knee arthroplasty in expected position. There is joint fluid, soft tissue gas and a drain due to recent surgery. IMPRESSION: Left knee arthroplasty in expected position. Electronically signed by: Carol Hardy MD (12/08/2019 1:52 PM) [id number] DICTATED and SIGNED BY: CAROL HARDY MD DATE: 12/08/19 1352 Assessment Assessment POD# 1 after TKA Plan Plan of Care Continue PT. Not yet able to get out of bed without assistance. Need to watch incision for blisters or further ecchymosis. JOHNATHAN KNIGHT MD Dec 09, 2019 17:21
[2019-12-09 17:49] VITALS: BP 110/56
[2019-12-09] MEDS: SUCRALFATE 1 GM TABLET. PO SCH (20:57)
[2019-12-09] MEDS: diphenhydrAMINE HCL 25 MG CAPSULE PO SCH (20:57)
--- NOTE | 2019-12-09 21:00 | NUR ---
Ambulating well w/o difficulty w/ walker and SBA. Dilaudid given po. Dressing D/I. Mid left leg is bruised and mildly swollen.
[2019-12-10 04:28] LABS: HEMATOCRIT 27.3 % (36.0-47.0); HEMOGLOBIN 9.3 g/dL (12.0-15.5)
[2019-12-10 05:42] VITALS: BP 107/62
[2019-12-10] MEDS: HYDROmorphone 2 MG TABLET PO PRN ×4 (06:34→20:46)
[2019-12-10] MEDS: SENNOSIDES/DOCUSATE 8.6/50MG TABLET. PO SCH (08:06)
[2019-12-10] MEDS: CALCIUM POLYCARBOPHIL 625 MG TABLET PO SCH (08:06)
[2019-12-10] MEDS: CELECOXIB 100 MG CAPSULE. PO SCH (08:06)
[2019-12-10] MEDS: ATORVASTATIN CALCIUM 10 MG TABLET. PO SCH (08:06)
[2019-12-10] MEDS: MULTIVITAMIN with MINERAL TABLET. PO SCH (08:06)
[2019-12-10] MEDS: metFORMIN 500 MG TABLET PO SCH (08:06)
[2019-12-10] MEDS: CETIRIZINE HCL 10 MG TABLET. PO SCH (08:06)
[2019-12-10] MEDS: RIVAROXABAN 10 MG TABLET. PO SCH (08:06)
[2019-12-10] MEDS ORDERED: FAMOTIDINE 20 MG TABLET. PO SCH (09:00)
--- NOTE | 2019-12-10 11:34 | PDOC ---
ORTHO PROGRESS NOTES Subjective Patient resting sitting up LEFT knee flexed. Pain controlled. Reports some bruising in distal quad. Post-op Day: 2 Procedure LEFT knee TKA robotic assisted Vitals Vital Signs Date Time Temp Pulse Resp B/P (MAP) Pulse Ox O2 Delivery O2 Flow Rate FiO2 12/10/19 10:02 Room Air 12/10/19 06:34 20 12/10/19 05:42 98.6 92 107/62 (77) 94 98.6 Labs Laboratory Tests Test 12/08/19 14:30 12/09/19 04:35 12/09/19 06:51 12/09/19 11:38 Glucose (Fingerstick) 155 mg/dL (70-99) 107 mg/dL (70-99) 118 mg/dL (70-99) White Blood Count 11.1 x10^3/uL (4.0-11.0) Red Blood Count 3.25 x10^6/uL (3.50-5.40) Hemoglobin 10.2 g/dL (12.0-15.5) Hematocrit 29.7 % (36.0-47.0) Mean Corpuscular Volume 92 fL (79-100) Mean Corpuscular Hemoglobin 31 pg (25-35) Mean Corpuscular Hemoglobin Concent 34 g/dL (31-37) Red Cell Distribution Width 14.8 % (11.5-14.5) Platelet Count 256 x10^3/uL (140-400) Test 12/10/19 04:19 12/10/19 06:32 Hemoglobin 9.3 g/dL (12.0-15.5) Hematocrit 27.3 % (36.0-47.0) Mean Corpuscular Hemoglobin Concent 34 g/dL (31-37) Glucose (Fingerstick) 103 mg/dL (70-99) Laboratory Tests Test 12/09/19 11:38 12/10/19 04:19 12/10/19 06:32 Glucose (Fingerstick) 118 mg/dL (70-99) 103 mg/dL (70-99) Hemoglobin 9.3 g/dL (12.0-15.5) Hematocrit 27.3 % (36.0-47.0) Mean Corpuscular Hemoglobin Concent 34 g/dL (31-37) Notes LEFT knee exam: Knee dressing intact, no excess drainage. Mild tenderness, bruising/erythema peripheral to dressing both medially and laterally. No induration. Hemovac pulled, no active bleeding. CHASE intact. Calf nontender bilaterally, neg fritz's sign bilaterally. Thigh nontender. Breathing easily, normal respirations. DP pulses 2+. Assessment and Plan POD # 2 S/P L TKA with patella resurfacing motor and sensation intact LLE dressing dry and intact continue PT LEX VIRK Jr. PAC Dec 10, 2019 11:34 am
--- NOTE | 2019-12-10 12:32 | NUR ---
Had episode during the end of therapy session where pt felt clammy and lightheadedness. BP checked 90/37 with heart rate 94. Pt returned to room ate 100% of lunch and BP rechecked. BP 106/52 with heart rate 98. Feeling better.
--- NOTE | 2019-12-10 17:06 | PATHOLOGY ---
[facility] Accession Number: [id number] . 01 Material submitted: . knee - LEFT KNEE BONE AND SOFT TISSUE. Modifiers: left . 01 Clinical history: . Osteoarthritis . 02 Diagnosis: Segments of bone and soft tissue, left robotic assisted total knee arthroplasty: - Advanced degenerative arthritis. 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 (JPM/db; 12/10/2019) LBQ 12/10/2019 1511 Local . 02 Electronically signed: . Demar Woods MD, Pathologist NPI- [id number] . 01 Gross description: . The specimen is received in formalin, labeled "Christa Meade, left knee bone and soft tissue" and consists of multiple segments of pink-chadwick bone including the tibial plateau with yellow-chadwick soft tissue measuring 15.9 x 12.7 x 2.5 cm in aggregate. The meniscus is present. Osteophytes are present. The articular surfaces display extensive granularity/roughening with focal eburnation. Territory Supervisor sections are submitted in A1-A2 with A2 following decalcification. (SDY; 12/09/2019) SYU/SYU 12/09/2019 1417 Local . 02 Pathologist provided ICD-10: M17.12, M65.9, E88.2 . 02 CPT . 963579, 246377 Specimen Comment: A courtesy copy of this report has been sent to [phone] Specimen Comment: Report sent to Dr. Vallejo Performed at: 01 [facility] [address], [place], [place] [id number] MD Presley Adam MD Phone: [phone] Performed at: 02 [facility] [address] [place], [place] [id number] MD Demar Woods MD Phone: [phone]
[2019-12-10 18:25] VITALS: BP 122/58
[2019-12-10] MEDS: diphenhydrAMINE HCL 25 MG CAPSULE PO SCH (20:46)
[2019-12-10] MEDS: SUCRALFATE 1 GM TABLET. PO SCH (20:46)
[2019-12-11] MEDS: HYDROmorphone 2 MG TABLET PO PRN ×3 (03:54→13:33)
[2019-12-11 04:15] LABS: HEMATOCRIT 27.2 % (36.0-47.0); HEMOGLOBIN 9.5 g/dL (12.0-15.5)
[2019-12-11 06:00] VITALS: BP 110/61
[2019-12-11] MEDS: CALCIUM POLYCARBOPHIL 625 MG TABLET PO SCH (07:52)
[2019-12-11] MEDS: SENNOSIDES/DOCUSATE 8.6/50MG TABLET. PO SCH (07:52)
[2019-12-11] MEDS: CELECOXIB 100 MG CAPSULE. PO SCH (07:52)
[2019-12-11] MEDS: PANTOPRAZOLE 40 MG TABLET.DR. PO SCH (07:52)
[2019-12-11] MEDS: CETIRIZINE HCL 10 MG TABLET. PO SCH (07:52)
[2019-12-11] MEDS: MULTIVITAMIN with MINERAL TABLET. PO SCH (07:52)
[2019-12-11] MEDS: metFORMIN 500 MG TABLET PO SCH (07:53)
[2019-12-11] MEDS: ATORVASTATIN CALCIUM 10 MG TABLET. PO SCH (07:53)
[2019-12-11] MEDS: RIVAROXABAN 10 MG TABLET. PO SCH (07:53)
--- NOTE | 2019-12-11 09:00 | NUR ---
Doing well this am. No c/o at this time. Up in chair reading a book. Cont. monitor.
--- NOTE | 2019-12-11 12:38 | RAD ---
VENOUS LOWER EXTREMITY LEFT History: History of DVT. Left leg pain. Recent knee surgery. Comparison: None. Discussion: Multiple longitudinal and transverse high resolution real-time images of the venous system of left lower extremity were obtained with color and Doppler sampling. Patent common femoral, superficial femoral, popliteal, posterior tibial and greater saphenous veins with normal augmentation and compression. Left peroneal vein is not well identified due to lower extremity edema. Impression: 1. No evidence of deep vein thrombosis. Electronically signed by: Jakob Rivera DO (12/11/2019 12:35 PM) [id number]
--- NOTE | 2019-12-11 12:49 | PDOC ---
ORTHO PROGRESS NOTES Subjective Patient reports doing well, still has pain but controlled. Swelling in leg, knee has her concerned with history of prior DVT. Post-op Day: 3 Procedure LEFT knee TKA robotic assisted Vitals Vital Signs Date Time Temp Pulse Resp B/P (MAP) Pulse Ox O2 Delivery O2 Flow Rate FiO2 12/11/19 09:43 Room Air 12/11/19 06:00 98.3 97 110/61 (77) 91 98.3 12/11/19 04:57 18 Labs Laboratory Tests Test 12/10/19 04:19 12/10/19 06:32 12/11/19 03:40 12/11/19 06:15 Hemoglobin 9.3 g/dL (12.0-15.5) 9.5 g/dL (12.0-15.5) Hematocrit 27.3 % (36.0-47.0) 27.2 % (36.0-47.0) Mean Corpuscular Hemoglobin Concent 34 g/dL (31-37) 35 g/dL (31-37) Glucose (Fingerstick) 103 mg/dL (70-99) 99 mg/dL (70-99) Laboratory Tests Test 12/11/19 03:40 12/11/19 06:15 Hemoglobin 9.5 g/dL (12.0-15.5) Hematocrit 27.2 % (36.0-47.0) Mean Corpuscular Hemoglobin Concent 35 g/dL (31-37) Glucose (Fingerstick) 99 mg/dL (70-99) X-Rays [facility] [address] [place] [address] IMAGING REPORT Signed PATIENT: HOWARD RODRIGUEZ ACCOUNT: [id number] : 1945 LOCATION: [address] [place] [address] AGE: 74 SEX: F EXAM STATUS: ADM IN ORD. PHYSICIAN: LEX VIRK Jr. PAC REASON: Prior DVT same leg, RECENT KNEE SURGERY, LT LEG PAIN PROCEDURE: VENOUS LOWER EXTREMITY LEFT VENOUS LOWER EXTREMITY LEFT History: History of DVT. Left leg pain. Recent knee surgery. Comparison: None. Discussion: Multiple longitudinal and transverse high resolution real-time images of the venous system of left lower extremity were obtained with color and Doppler sampling. Patent common femoral, superficial femoral, popliteal, posterior tibial and greater saphenous veins with normal augmentation and compression. Left peroneal vein is not well identified due to lower extremity edema. Impression: 1. No evidence of deep vein thrombosis. Electronically signed by: Jakob Rivera DO (12/11/2019 12:35 PM) [id number] DICTATED and SIGNED BY: JAKOB RIVERA DO DATE: 12/11/19 6535 Notes LEFT knee exam: Knee dressing intact, no excess drainage. Mild tenderness, bruising/erythema peripheral to dressing both medially and laterally. No induration. Hemovac site benign, no active bleeding. CHASE intact. Calf nontender bilaterally, neg fritz's sign bilaterally. Thigh nontender. Breathing easily, normal respirations. DP pulses 2+. Problems: (1) Aftercare following left knee joint replacement surgery (2) Primary osteoarthritis of left knee Assessment and Plan Discharge to home since doppler results showed no DVT Continue PT as arranged for Outpatient services. Start Xarelto starter pack. F/U in clinic with Dr Wilkins in 2 weeks Monitor calf and extremities for infection signs or calf pain, swelling, redness, warmth, cramping and report to clinic or ER. LEX VIRK Jr. PAC Dec 11, 2019 12:49
--- NOTE | 2019-12-11 13:24 | PDOC ---
PROGRESS NOTES Subjective Subjective Planning on discharge today. Had calf pain, but doppler neg Objective Vital Signs Vital Signs Date Time Temp Pulse Resp B/P (MAP) Pulse Ox O2 Delivery O2 Flow Rate FiO2 12/11/19 09:43 Room Air 12/11/19 06:00 98.3 97 110/61 (77) 91 98.3 12/11/19 04:57 18 12/08/19 20:00 4.0 Physical Exam CHASE is intact with spotty drainage only. Calf is somewhat swollen and tender, and she has history of DVT Labs Laboratory Tests Test 12/10/19 04:19 12/10/19 06:32 12/11/19 03:40 12/11/19 06:15 Hemoglobin 9.3 g/dL (12.0-15.5) 9.5 g/dL (12.0-15.5) Hematocrit 27.3 % (36.0-47.0) 27.2 % (36.0-47.0) Mean Corpuscular Hemoglobin Concent 34 g/dL (31-37) 35 g/dL (31-37) Glucose (Fingerstick) 103 mg/dL (70-99) 99 mg/dL (70-99) Laboratory Tests Test 12/11/19 03:40 12/11/19 06:15 Hemoglobin 9.5 g/dL (12.0-15.5) Hematocrit 27.2 % (36.0-47.0) Mean Corpuscular Hemoglobin Concent 35 g/dL (31-37) Glucose (Fingerstick) 99 mg/dL (70-99) Imaging PATIENT: HOWARD RODRIGUEZ CACCOUNT: [id number] : 1945 LOCATION: [address] [place] [address] AGE: 74 SEX: F EXAM STATUS: ADM IN ORD. PHYSICIAN: LEX VIRK Jr. PAC REASON: Prior DVT same leg, RECENT KNEE SURGERY, LT LEG PAIN PROCEDURE: VENOUS LOWER EXTREMITY LEFT VENOUS LOWER EXTREMITY LEFT History: History of DVT. Left leg pain. Recent knee surgery. Comparison: None. Discussion: Multiple longitudinal and transverse high resolution real-time images of the venous system of left lower extremity were obtained with color and Doppler sampling. Patent common femoral, superficial femoral, popliteal, posterior tibial and greater saphenous veins with normal augmentation and compression. Left peroneal vein is not well identified due to lower extremity edema. Impression: 1. No evidence of deep vein thrombosis. Electronically signed by: Jakob Rivera DO (12/11/2019 12:35 PM) [id number] DICTATED and SIGNED BY: JAKOB RIVERA DO DATE: 12/11/19 1235 Assessment Assessment POD#3 TKA Plan Plan of Care Discharge today to home with outpatient physical therapy. Office followup in 10- 14 days. Continue DVT prophylaxis with Xarelto. JOHNATHAN KNIGHT MD Dec 11, 2019 13:24
[2019-12-11] MEDS ORDERED: RIVA10TA PO (13:36)
--- NOTE | 2019-12-11 13:39 | PDOC3 ---
Discharge Summary Visit Information Date of Admission: Dec 08, 2019 Date of Discharge: Dec 11, 2019 Admitting Diagnosis: OA knee Final Diagnosis same Brief Hospital Course Allergies Allergies Coded Allergies Type Severity Reaction Last Updated Verified codeine Allergy Intermediate MIGRAINES, VOMITING 12/08/19 Yes hydrocodone Allergy Intermediate 12/08/19 Yes oxycodone Allergy Intermediate 12/08/19 Yes lansoprazole Allergy Mild MIGRAINES 12/08/19 Yes Vital Signs Vital Signs Date Time Temp Pulse Resp B/P (MAP) Pulse Ox O2 Delivery O2 Flow Rate FiO2 12/11/19 13:33 Room Air 12/11/19 06:00 98.3 97 110/61 (77) 91 98.3 12/11/19 04:57 18 Lab Results Laboratory Tests Test 12/10/19 04:19 12/10/19 06:32 12/11/19 03:40 12/11/19 06:15 Hemoglobin 9.3 g/dL (12.0-15.5) 9.5 g/dL (12.0-15.5) Hematocrit 27.3 % (36.0-47.0) 27.2 % (36.0-47.0) Mean Corpuscular Hemoglobin Concent 34 g/dL (31-37) 35 g/dL (31-37) Glucose (Fingerstick) 103 mg/dL (70-99) 99 mg/dL (70-99) Laboratory Tests Test 12/11/19 03:40 12/11/19 06:15 Hemoglobin 9.5 g/dL (12.0-15.5) Hematocrit 27.2 % (36.0-47.0) Mean Corpuscular Hemoglobin Concent 35 g/dL (31-37) Glucose (Fingerstick) 99 mg/dL (70-99) Brief Hospital Course 74 year old who presented with knee osteoarthritis, for elective total knee arthroplasty. The patient underwent total knee arthroplasty under general anesthesia the day of admission. Perioperative antibiotics and DVT prophylaxis were used. Postoperatively physical therapy and case management were consulted. She had calf pain and history of DVT but Doppler prior to discharge was neg for DVT. The patient progressed and is stable for discharge. Discharge Information Condition at Discharge: Stable Follow Up: Weeks Disposition/Orders: D/C to Home Scheduled Atorvastatin Calcium (Atorvastatin Calcium), 1 TAB PO DAILY, (Reported) Calcium Polycarbophil (Fiber Tabs), 625 MG PO DAILY, (Reported) Celecoxib (Celebrex), 1 CAP PO ONCE, (Reported) Cetirizine Hcl (Zyrtec), 10 MG PO DAILY, (Reported) Diphenhydramine Hcl (Benadryl), 50 MG PO HS, (Reported) Famotidine (Pepcid), 80 MG PO QODAY, (Reported) Ferrous Sulfate (Iron), 325 MG PO DAILY, (Reported) Metformin Hcl (Metformin Hcl), 1 TAB PO DAILY07, (Reported) Pantoprazole Sodium (Pantoprazole Sodium ), 40 MG PO QODAY, (Reported) Sucralfate (Sucralfate), 1 GM PO HS, (Reported) Scheduled PRN Ibuprofen (Ibuprofen), 600 MG PO PRN Q6HRS PRN for INFLAMMATION, (Reported) Patient Instructions Patient Instructions Continue to weight bearing as tolerated with walker. Keep CHASE dressing intact and dry. Cut off CHASE "tail" and throw away battery pack on the 7th day after s urgery. Tape down CHASE tail Leave CHASE dressing intact otherwise. Follow up with Dr. Wilkins's office in 10-14 days. Call for appointment unless already scheduled. Continue Xarelto for 30 days to prevent blood clots. LEX VIRK Jr. PAC Dec 11, 2019 13:39
[2019-12-11] MEDS ORDERED: HYDR4TAB PO (13:48)
[2019-12-11 15:00] VITALS: BP 109/51
--- NOTE | 2019-12-11 15:08 | NUR ---
Discharge instructions given. Answered question and concerns. Verbalized understanding. Pt discharge home accompanied by spouse.
== END 2019-12-11 15:08 | disposition home or self-care (01) | DRG 470 ==
LOC: SURG 08:55 → 4 SOUTHEST 13:00 → OBSVTOIN 13:40
PROVIDERS: ADMIT Orthopaedic Surgery; ATTEND Orthopaedic Surgery
PROC: 8E0Y0CZ Robotic Assisted Procedure of Lower Extremity, Open Approach (ICD-10-PCS; 2019-12-08)
PROC: 0SRD0J9 Replacement of Left Knee Joint with Synthetic Substitute, Cemented, Open Approach (ICD-10-PCS; principal; 2019-12-08 10:30)
DX: M17.12 Unilateral primary osteoarthritis, left knee (principal); Z86.718 Personal history of other venous thrombosis and embolism; Z87.19 Personal history of other diseases of the digestive system; Z98.1 Arthrodesis status; Z98.49 Cataract extraction status, unspecified eye; Z90.710 Acquired absence of both cervix and uterus; Z88.5 Allergy status to narcotic agent; Z88.8 Allergy status to other drugs, medicaments and biological substances
CPT/HCPCS: 36415; 73560; 82962; 85014; 85018; 85027; 86850; 86900; 86901; 88304; 88311; 93971; A7015; C1713; G0379; J0171; J0330; J0696; J0780; J1100; J1885; J2001; J2250; J2270; J2370; J2405; J2704; J2710; J2795; J3010; J3260; J3370; J3490; J7030; J7120; 97116; 97150; 97530; 97535; A4461; C1769; G0378; Q0163

== ENCOUNTER 2020-01-15 06:16 | Day surgery (SDC) | payer MEDICARE ==
[~2020-01-15 06:16] MED LIST changes: -ACETAMINOPHEN 500 MG TABLET PO PRN; +CELE200C PO; -CELECOXIB 100 MG CAPSULE. PO ONE; -DEXAMETHASONE SOD PHOS 4 MG/ML VIAL ONE; +HYDR4TAB PO; -IV RINGERS,LACTATED 1000ML 1,000 ML IV SCH; -LIDOCAINE 1% PF 2 ML VIAL. ID PRN; -LIDOCAINE 2% PF 5 ML VIAL. ONE; -MORPHINE SULFATE 5 MG, KETOROLAC 30MG VIAL 30 MG, ROPIVacaine 0.5% PF 60 ML, EPINEPHrin... INT ART ONE; -ONDANSETRON PF 4 MG/2 ML VIAL. IV PRN; -ONDANSETRON PF 4 MG/2 ML VIAL. ONE; -PHENYLEPHRINE in 0.9% NACL PF 1 MG/10 ML SYRINGE. IV ONE; -PROCHLORPERAZINE 10 MG/2 ML VIAL. IV PRN; -PROPOFOL 20 ML IV ONE; +RIVA10TA PO; -ROCURONIUM 50 MG/5 ML VIAL. ONE; -SUCCINYLCHOLINE 200 MG/10 ML VIAL. ONE; -TOBRAMYCIN POWDER 1.2 GM VIAL. ONE; -TRANEXAMIC ACID 1,000 MG in IV NS 50ML -- 1ST BAG INJ ONE; -TRANEXAMIC ACID 1,000 MG in IV NS 50ML -- 2ND BAG INJ ONE; -VANCOMYCIN 1 GM VIAL. ONE; -ceFAZolin 2GM PREMIX 2 GM/50 ML BAG IV ONE; -ePHEDrine PF IN SALINE 50 MG/10 ML SYRINGE. IV ONE; -fentaNYL PF VIAL 100 MCG/2 ML VIAL IV PRN; -fentaNYL PF VIAL 100 MCG/2 ML VIAL ONE
[2020-01-15] MEDS ORDERED: fentaNYL PF VIAL 100 MCG/2 ML VIAL IV PRN (07:00)
[2020-01-15] MEDS ORDERED: ONDANSETRON PF 4 MG/2 ML VIAL. IV PRN (07:00)
[2020-01-15] MEDS ORDERED: IV RINGERS,LACTATED 1000ML 1,000 ML IV SCH (07:00)
[2020-01-15] MEDS ORDERED: LIDOCAINE 1% PF 2 ML VIAL. ID PRN (07:00)
[2020-01-15] MEDS ORDERED: PROCHLORPERAZINE 10 MG/2 ML VIAL. IV PRN (07:00)
[2020-01-15] MEDS ORDERED: BUPIVACAINE-EPI 0.25%-1:200000 MPF 30 ML VIAL. ONE (07:12)
[2020-01-15] MEDS ORDERED: INSULIN LISPRO 100 UNIT/ML 3ML VIAL for OP,RR ONLY. SQ PRN (07:15)
[2020-01-15] MEDS ORDERED: PROPOFOL 20 ML IV ONE (07:39)
[2020-01-15] MEDS ORDERED: fentaNYL PF VIAL 100 MCG/2 ML VIAL ONE ×2 (07:39→09:13)
[2020-01-15] MEDS ORDERED: ONDANSETRON PF 4 MG/2 ML VIAL. ONE (07:39)
[2020-01-15] MEDS ORDERED: DEXAMETHASONE SOD PHOS 4 MG/ML VIAL ONE (07:39)
[2020-01-15] MEDS ORDERED: LIDOCAINE 2% PF 5 ML VIAL. ONE (07:39)
[2020-01-15] MEDS ORDERED: FAMOTIDINE 20 MG/2 ML VIAL ONE (07:39)
[2020-01-15] MEDS ORDERED: KETAMINE HCL IN NACL, ISO-OSM 50 MG/5 ML SYRINGE ONE (08:18)
[2020-01-15] MEDS ORDERED: PROPOFOL 50 ML IV ONE (08:18)
[2020-01-15] MEDS ORDERED: ceFAZolin SODIUM IV Push 1 GM VIAL. IVP ONE (08:46)
[2020-01-15] MEDS: fentaNYL PF VIAL 100 MCG/2 ML VIAL IV PRN ×2 (09:20→10:10)
--- NOTE | 2020-01-15 09:52 | PDOC4 ---
Operative Note Operative Note Date of Procedure: January 15, 2020 Pre-Op Diagnosis: Left knee open wound ICD 10 S81.002A Post-Op Diagnosis: same Procedure: Debridement subcutaneous tissue 3 cm CPT 46876 Surgeon: Johnathan Wilkins MD Ribbon Sweatband Operator: MOMO Mg Anesthesia: General EBL: 5 mL Specimens Obtained: Synovial fluid from the left knee joint, sent for cell count with differential in a gel-free lithium heparin green top tube, and synovial fluid from the left knee joint sent in a specimen cup for aerobic, anaerobic, fungal, and AFB cultures. Complications: none Drains: none Findings: Superficial open wound. No apparent deep infection. Indications for Procedure: Christa is a 74-year-old woman who had total knee arthroplasty about 1 month ago. She had some areas of eschar at her incision last week that were checked in the office, and a dressing was placed. I saw her in the office yesterday for a recheck, and the area appeared worse with now a small open wound, soft eschar, and the skin edges at the incision are low no longer well opposed. There does not seem to be any deep drainage. There is minimal if any knee effusion and no signs of deep infection. I recommended a trip to the operating room for a sterile setting, for debridement of the eschar and debridement of the open open wound and closure. I recommended we take intraoperative sterile knee synovial fluid cultures to confirm that there is no deep infection. She agreed with that plan. Written consent was obtained. Procedure in Detail: The patient was identified in the preoperative holding area. The correct left lower extremity was marked by me. The patient was taken to the operating room where monitored sedation anesthetic was used. The patient was positioned supine on the operating table. A tourniquet was not used. Antibiotics were held until after cultures were taken. A timeout procedure was performed. The limb was prepared in sterile fashion with Betadine. Sterile drapes were applied. An impervious stockinette was used over the lower limb. A 16-gauge needle and 10 mL syringe were used to aspirate the knee joint under sterile technique. About 10 mL of benign-appearing transparent yellow synovial fluid were obtained. This was divided and sent in the specimen cup for the cultures, as well as in gel-free lithium heparin green top tube for cell count with differential. Intravenous antibiotics were now given, 2 g of Ancef. The eschar was debrided sharply with excision using 15 blade scalpel and Adson forceps. This appears to involve skin and subcutaneous tissue without any deep fascial involvement. The patellar tendon is underlying the area of open wound but does not appear compromised. The Pixable InterPulse utility worker was used and copious saline i rrigation was used. The skin edges were injected with quarter percent Marcaine with epinephrine for pain relief. The skin was re-prepared with Betadine. A single layer closure was now performed using #0 Prolene suture in a horizontal mattress fashion, about 3 cm in length. Sterile dressings were applied including Xeroform, 4 x 4's, ABD, soft roll and Og wrap. The patient tolerated the procedure well and returned to the recovery room in good condition. I would like her to remove the dressing in 2 days and begin daily showers. No tub baths. Avoid any aggressive flexion, and she should hold on formal physical therapy at this time. Once the anterior incision is healed we may begin more aggressive flexion but if she is too aggressive now she might replace the sutures or reopen that wound. Results were discussed with the patient's . I will see her back in 6 days to review the culture results in the office. JOHNATHAN WILKINS MD Jan 15, 2020 09:52
[2020-01-15 10:15] VITALS: BP 117/46
[2020-01-15 11:07] LABS: BF COLOR YELLOW; BF SOURCE SYNOVIAL
[2020-01-15 11:08] LABS: BF CLARITY HAZY; BF MON % 35 %; BF PMN % 65 %; BF RBC COUNT 2480 /cmm (Not Established); BF WBC COUNT 540 /cmm (Not Established)
== END 2020-01-15 11:00 | disposition home or self-care (01) ==
LOC: SURG 06:16
PROVIDERS: ATTEND Orthopaedic Surgery
DX: T81.89XA Other complications of procedures, not elsewhere classified, initial encounter (principal); K21.9 Gastro-esophageal reflux disease without esophagitis; E11.9 Type 2 diabetes mellitus without complications; G43.909 Migraine, unspecified, not intractable, without status migrainosus; E78.00 Pure hypercholesterolemia, unspecified; E66.9 Obesity, unspecified; Z68.33 Body mass index [BMI] 33.0-33.9, adult; Z88.6 Allergy status to analgesic agent; Z88.8 Allergy status to other drugs, medicaments and biological substances; Z86.718 Personal history of other venous thrombosis and embolism; Z86.010 Personal history of colon polyps; Z90.49 Acquired absence of other specified parts of digestive tract; Z79.4 Long term (current) use of insulin; Z87.442 Personal history of urinary calculi; Z89.612 Acquired absence of left leg above knee; Z90.710 Acquired absence of both cervix and uterus; Z72.89 Other problems related to lifestyle; Z90.721 Acquired absence of ovaries, unilateral; Y83.8 Other surgical procedures as the cause of abnormal reaction of the patient, or of later complication, without mention of misadventure at the time of the procedure; Y92.89 Other specified places as the place of occurrence of the external cause
CPT/HCPCS: 11042; 20610; 82962; 87071; 87075; 87102; 87116; 89050; A7015; J0690; J1100; J1815; J2405; J2704; J3010; J3490; A4461